=== PATIENT | male | born 1970 | race Caucasian/White ===

== ENCOUNTER 2020-07-22 20:02 | Emergency (ER) | payer MEDICAID ==
[~2020-07-22] VITALS: Ht 182.9 cm; Wt 90.9 kg
[2020-07-22] MEDS ORDERED: olanzapine 10mg tablet PO STA (20:13)
[2020-07-22 20:43] LABS: BASOPHILS % (AUTO) 0.5 % (0-1); EOSINOPHILS % (AUTO) 0.5 % (0-6); HEMATOCRIT 41.5 % (42.0-52.0); HEMOGLOBIN 14.1 g/dl (14.0-17.9); LYMPHOCYTES # (AUTO) 1.1 X10'3 (1.1-4.8); MEAN CORPUSCULAR HEMOGLOBIN 30.5 PG (27.0-31.0); MEAN CORPUSCULAR HGB CONC 33.9 g/dL (33.0-36.5); MEAN CORPUSCULAR VOLUME 89.9 FL (78-98); MEAN PLATELET VOLUME 9.4 FL (7.4-10.4); MONOCYTES # (AUTO) 0.7 X10'3 (0-0.9); NEUTROPHILS # (AUTO) 6.7 X10'3 (1.8-7.7); PLATELET COUNT 206 X10'3 (140-440); RED BLOOD COUNT 4.61 X10'6 (4.70-6.10); RED CELL DISTRIBUTION WIDTH 14.1 % (11.5-14.5); WHITE BLOOD COUNT 8.6 X10'3 (4.5-11.0)
[2020-07-22 20:44] LABS: ALANINE AMINOTRANSFERASE 31 U/L (12-78); ALBUMIN 4.2 G/DL (3.4-5.0); ALBUMIN/GLOBULIN RATIO 1.2 (1.1-1.5); ALKALINE PHOSPHATASE 95 IU/L (46-116); ANION GAP 11 (8-16); ASPARTATE AMINO TRANSFERASE 15 U/L (10-37); BILIRUBIN,TOTAL 0.3 MG/DL (0.1-1.0); BLOOD UREA NITROGEN 17 MG/DL (7-18); BUN/CREATININE RATIO 16.7 (5.4-32.0); CALCIUM 9.4 MG/DL (8.5-10.1); CHLORIDE 105 MMOL/L (99-107); CREATININE 1.02 MG/DL (0.60-1.10); ETHANOL < 0.010 GM/DL (0.0-0.010); GLUCOSE 113 MG/DL (70-104); POTASSIUM 3.9 MMOL/L (3.5-5.1); SODIUM 144 MMOL/L (135-145); TOTAL CARBON DIOXIDE 28.1 MMOL/L (24-32); TOTAL PROTEIN 7.7 G/DL (6.4-8.2); eGFR 81 ML/MIN
[2020-07-22 20:56] LABS: URINE AMPHETAMINE SCREEN NEGATIVE (Neg); URINE BARBITUATE SCREEN NEGATIVE (Neg); URINE BENZODIAZEPINES SCREEN NEGATIVE (Neg); URINE CANNABINOID SCREEN NEGATIVE (Neg); URINE COCAINE SCREEN NEGATIVE (Neg); URINE METHADONE SCREEN NEGATIVE (Neg); URINE OPIATE SCREEN NEGATIVE (Neg); URINE PHENCYCLIDINE SCREEN NEGATIVE (Neg)
--- NOTE | 2020-07-22 20:58 | NUR ---
PT REPORTS HE IS DISABLED AND STATES "YES" TO HAVING A DEVELOPMENTAL DISABILLITY. [facility] POINT OF CONTACT ESTEBAN GARNICA [phone], AND MENG GARNICA [phone]. THEY WILL NEED TO BE CONTACTED FOR VERIFY MEDS AND PTS SPECIFIC MEDICAL HISTORY PT ARRIVED WITH NO DOCUMENTATION OF MEDICAL HX.
--- NOTE | 2020-07-22 21:00 | NUR ---
LABS DRAWN, URINE COLLECTED AND COVID SWAB COLLECTED AND PT DRESWSED IN GREEN SCRUBS. BELONGINGS INVENTORIED BY SAGAR HOPKINS.
--- NOTE | 2020-07-22 21:16 | NUR ---
The patient moved to bed 24 in the ER and he was cooperative with the move. He denies voices at this time but states he feels "really really scared" Ordered zyprexa given.
--- NOTE | 2020-07-22 21:17 | NUR ---
[facility] POINT OF CONTACT ESTEBAN [phone] AND MENG [phone]
--- NOTE | 2020-07-22 21:19 | NUR ---
Contacted [facility] and requested the patient's medication list.
--- NOTE | 2020-07-22 22:42 | NUR ---
The patient was up to use the bathroom.
[2020-07-22] MEDS ORDERED: DIPH-1055 PO (22:48)
[2020-07-22] MEDS ORDERED: FLUO20CA39 PO (22:48)
[2020-07-22] MEDS ORDERED: PSYL575P22 PO (22:55)
[2020-07-22] MEDS ORDERED: GUAN2TAB PO (22:55)
[2020-07-22] MEDS ORDERED: OLAN5TAB26 PO (22:55)
[2020-07-22] MEDS ORDERED: SENN8.6T19 PO (22:55)
[2020-07-22] MEDS ORDERED: MUPI22OI30 TP (22:55)
[2020-07-22] MEDS ORDERED: DIAZ5TAB4 PO (22:55)
[2020-07-22] MEDS ORDERED: GUAN1TAB PO (22:55)
[2020-07-23] MEDS ORDERED: guanFACINE 1 mg tablet PO PRN (00:15)
--- NOTE | 2020-07-23 00:22 | NUR ---
The patient appears to be sleeping
--- NOTE | 2020-07-23 01:22 | NUR ---
The patient appears to be sleeping
--- NOTE | 2020-07-23 03:00 | NUR ---
The patient appears to be sleeping
--- NOTE | 2020-07-23 04:42 | NUR ---
The patient appears to be sleeping but periodically up to use the bathroom
[2020-07-23 06:01] VITALS: BP 109/63
--- NOTE | 2020-07-23 06:45 | NUR ---
Pt resting with eyes closed, effortless respirations observed.
[2020-07-23] MEDS ORDERED: sennosides 8.6mg tablet PO SCH (08:00)
[2020-07-23] MEDS ORDERED: psyllium seed 3.4 gm packet PO SCH (08:00)
[2020-07-23] MEDS ORDERED: diphenhydrAMINE 25mg capsule PO SCH (08:00)
[2020-07-23] MEDS ORDERED: OLANZAPINE 5 MG TABLET PO SCH (08:00)
--- NOTE | 2020-07-23 09:45 | NUR ---
Community Engagement Coordinator from pt care facilty Fidelina Chery called in checking on pt.
--- NOTE | 2020-07-23 10:30 | NUR ---
[facility]
--- NOTE | 2020-07-23 11:10 | NUR ---
Pt is being released with safety plan going back to care facilty per [facility] worker
[2020-07-23] MEDS ORDERED: guanFACINE 1 mg tablet PO SCH (21:00)
[2020-07-23] MEDS ORDERED: FLUoxetine 20mg capsule PO SCH (21:00)
== END 2020-07-23 11:31 | disposition home or self-care (01) ==
LOC: EDBD 20:03 → ER 20:03
DX: F32.9 Major depressive disorder, single episode, unspecified (principal); Z20.822 Contact with and (suspected) exposure to COVID-19; R45.851 Suicidal ideations; R44.1 Visual hallucinations; Z79.2 Long term (current) use of antibiotics; Z79.899 Other long term (current) drug therapy
CPT/HCPCS: 36415; 80053; 80305; 80320; 85025; 87426; 99285; Q0163